=== PATIENT | female | born 1950 | race Native Hawaiian/Other Pacific Islander ===

== ENCOUNTER 2017-09-15 15:19 | Observation (INO) | payer MEDICARE ==
--- NOTE | 2017-09-15 16:16 | RAD ---
PROCEDURE: CHEST RADIOGRAPH, 1 VIEW HISTORY: SOB COMPARISON: Chest radiographs 03/22/2017. FINDINGS: LUNGS: No acute cardiopulmonary disease appreciated. PLEURA: No pneumothorax or pleural fluid seen. CARDIOVASCULAR: Cardiomegaly appears stable. No pulmonary vascular derangement identified. OSSEOUS STRUCTURES: No significant abnormalities. VISUALIZED UPPER ABDOMEN: Normal. OTHER FINDINGS: None. IMPRESSION: No interval acute cardiopulmonary disease appreciated.
[2017-09-15 16:25] LABS: BASO % 0.6 % (0.0-2.0); EOS # 0.2 K/uL (0.0-0.7); EOS % 3.1 % (0.0-4.0); HEMOGLOBIN 10.4 g/dL (11.0-16.0); LYMPH # 1.9 K/uL (1.0-4.3); LYMPH % 28.3 % (20.0-40.0); MEAN CELL VOLUME 82.3 fL (81.0-99.0); MEAN CORPUSCULAR HEMOGLOBIN 27.4 pg (27.0-31.0); MEAN CORPUSCULAR HGB CONC 33.3 g/dL (33.0-37.0); MEAN PLATELET VOLUME 9.4 fL (7.2-11.7); MONO # 0.9 K/uL (0.0-0.8); MONO % 12.8 % (0.0-10.0); NEUT # 3.8 K/uL (1.8-7.0); NEUT % 55.2 % (50.0-75.0); NRBC % 0.1 % (0.0-2.0); RBC 3.81 Mil/uL (3.80-5.20); RED CELL DISTRIBUTION WIDTH 12.6 % (11.5-14.5); WHITE BLOOD COUNT 6.8 K/uL (4.8-10.8)
[2017-09-15 16:33] LABS: PROTHROMBIN TIME 10.6 SECONDS (9.7-12.2)
[2017-09-15 16:37] LABS: SQUAMOUS EPITHIAL 1 /hpf (0-5); URINE BACTERIA RARE (<OCC); URINE BILIRUBIN NEGATIVE (NEGATIVE); URINE BLOOD NEGATIVE (NEGATIVE); URINE CLARITY Clear (Clear); URINE COLOR Yellow (YELLOW); URINE GLUCOSE (UA) NORMAL (Normal); URINE LEUKOCYTE ESTERASE NEGATIVE Leu/uL (Negative); URINE PROTEIN NEGATIVE (NEGATIVE); URINE UROBILINOGEN NORMAL mg/dL (0.2-1.0)
[2017-09-15 16:41] LABS: BARBITURATES, UR NEGATIVE (NEGATIVE); BENZODIAZEPINES, UR NEGATIVE (NEGATIVE); OPIATES, UR NEGATIVE (NEGATIVE); PHENCYCLIDINE, UR NEGATIVE (NEGATIVE)
[2017-09-15 16:42] LABS: ALBUMIN 3.4 g/dL (3.5-5.0); ALT/SGPT 58 U/L (9-52); AST/SGOT 35 U/L (14-36); BLOOD UREA NITROGEN 27 mg/dL (7-17); CALCIUM 10.2 mg/dl (8.6-10.4); GFR AFRICAN-AMERICAN > 60; GFR NON-AFRICAN AMERICAN > 60
[2017-09-15 16:44] LABS: ALB/GLOB RATIO 1.2 (1.0-2.1)
[2017-09-15] MEDS ORDERED: Enoxaparin 40 mg Syringe SC STA (16:52)
--- NOTE | 2017-09-15 16:52 | C.PDOC ---
Time Seen by Provider: 09/15/17 15:54 Chief Complaint (Nursing): Medical Clearance Past Medical History Vital Signs: Last Vital Signs Temp 98.6 F 09/15/17 15:22 Pulse 65 09/15/17 15:22 Resp 18 09/15/17 15:22 BP 174/85 H 09/15/17 15:22 Pulse Ox 96 09/15/17 15:22 - Medical History PMH: Asthma, HTN, Hyperlipidemia, Hyperthyroidism - Social History Hx Alcohol Use: No Hx Substance Use: No - Immunization History Hx Tetanus Toxoid Vaccination: No Hx Influenza Vaccination: No Hx Pneumococcal Vaccination: Yes Review Of Systems Constitutional: Positive for: Weight loss ED Course And Treatment O2 Sat by Pulse Oximetry: 96 Disposition - Disposition
[2017-09-15 16:57] LABS: B-TYPE NATRIURETIC PEPTIDE 6730 pg/mL (0-900)
--- NOTE | 2017-09-15 16:59 | C.PDOC ---
History Of Present Illness 66 y/o female, referred by , presents to the ER for a new onset on Afib. Patient states that she was diagnosed with hyperthyroidism without any treatment so far. Of note, patient reports that she recently had oral aphthous ulcers for which she was given viscous Lidocaine. Time Seen by Provider: 09/15/17 15:54 Chief Complaint (Nursing): Medical Clearance History Per: Patient History/Exam Limitations: no limitations Past Medical History Reviewed: Historical Data, Nursing Documentation, Vital Signs Vital Signs: Last Vital Signs Temp 98.6 F 09/15/17 15:22 Pulse 65 09/15/17 15:22 Resp 18 09/15/17 15:22 BP 174/85 H 09/15/17 15:22 Pulse Ox 96 09/15/17 17:31 - Medical History PMH: Asthma, HTN, Hyperlipidemia, Hyperthyroidism Surgical History: No Surg Hx Family History: States: No Known Family Hx - Social History Hx Alcohol Use: No Hx Substance Use: No - Immunization History Hx Tetanus Toxoid Vaccination: No Hx Influenza Vaccination: No Hx Pneumococcal Vaccination: Yes Review Of Systems Except As Marked, All Systems Reviewed And Found Negative. Constitutional: Positive for: Weight loss, Other (insomnia). Negative for: Fever, Chills Neurological: Negative for: Weakness, Numbness Physical Exam - Physical Exam Appears: Non-toxic, No Acute Distress, Other (thin Lebanese woman) Skin: Normal Color, Warm Head: Atraumatic, Normacephalic Eye(s): bilateral: Normal Inspection, PERRL, Other (no exophthalmos) Nose: Normal Oral Mucosa: Moist Neck: No Midline Cervical Tenderness, Supple Chest: Symmetrical Cardiovascular: Rhythm Irregular, Other (regular rate) Respiratory: Normal Breath Sounds, No Accessory Muscle Use Gastrointestinal/Abdominal: Normal Exam, Soft, No Tenderness Extremity: Normal ROM, No Tenderness, No Swelling Neurological/Psych: Oriented x3, Normal Speech, Normal Cognition, Normal Motor, Normal Sensation ED Course And Treatment - Laboratory Results Result Diagrams: 09/15/17 16:19 09/15/17 16:19 Lab Interpretation: Abnormal (TSH low, T4H, tox neg) ECG: Interpreted By Wy ECG Rhythm: Atrial Fibrillation ECG Interpretation: Abnormal Rate From EC O2 Sat by Pulse Oximetry: 96 (RA) Pulse Ox Interpretation: Normal - Radiology CXR: Interpreted by Me CXR Interpretation: Yes: No Acute Disease Progress Note: lovenox 50 mg SQ, lidocaine swish/swallow Reevaluation Time: 17:26 Reassessment Condition: Improved Medical Decision Making Medical Decision Making: new onset AF with HYPER thyroidism (high T4, low TSH from opt labs) ? low Dig level 0.5, unclear if pt on Dig Disposition Doctor Will See Patient In The: Hospital Counseled Patient/Family Regarding: Studies Performed, Diagnosis - Disposition Disposition: HOSPITALIZED Disposition Time: 17:30 Condition: GOOD - Clinical Impression Clinical Impression: Atrial fibrillation, Aphthous ulcer of mouth - Scribe Statement The provider has reviewed the documentation as recorded by the Jason Vizcarra Provider Attestation: All medical record entries made by the Jason were at my direction and personally dictated by me. I have reviewed the chart and agree that the record accurately reflects my personal performance of the history, physical exam, medical decision making, and the department course for this patient. I have also personally directed, reviewed, and agree with the discharge instructions and disposition.
[2017-09-15 17:06] LABS: FREE T4 6.49 ng/dL (0.78-2.19)
[2017-09-15] MEDS ORDERED: Enoxaparin 60 mg Syringe ONE ×2 (17:38→17:43)
--- NOTE | 2017-09-15 18:13 | CP.PCM.HP ---
History of Present Illness - History of Present Illness History of Present Illness: 66 years old Lady with PMH NIDDM2 Hypertension Cholesterol OA hips chronic periodic oral canker sore Asthma was doing good -patient was referred to cardio -for plan of hip surgery patient went for blood test- timing with cardio exam-blood showed suppressed TSH and Afib-new onset- patient was sent to ER for and admitted for further evaluation and mangement ROS no cough no fevr no chest painno SOB but reports something tightness on the left chest patient has gait abnormalitry and hip pain due to the arthtritis Surgery-none NKDA Home meds metformin losartan, inhalers atrovastatin and mouth wash non smoker non etoh Present on Admission - Present on Admission Any Indicators Present on Admission: No History of DVT/PE: No History of Uncontrolled Diabetes: No Urinary Catheter: No Decubitus Ulcer Present: No Review of Systems - Constitutional Constitutional: absent: Anorexia, Chills, Fatigue, Fever, Headache - EENT Eyes: absent: Other Visual Disturbances, Loss of Vision Ears: absent: Ear Pain, Abnormal Hearing, Disequilibrium Nose/Mouth/Throat: Mouth Lesions (chronic periodic canker sore ). absent: Epistaxis, Nasal Congestion, Nasal Discharge - Breasts Breasts: absent: Pain - Cardiovascular Cardiovascular: Palpitations (somewhat). absent: Chest Pain, Diaphoresis, Dyspnea, Pedal Edema, Syncope - Respiratory Respiratory: absent: Cough, Wheezing, Pain on Inspiration, Chest Congestion, Excessive Mucous Production - Gastrointestinal Gastrointestinal: absent: Abdominal Pain, Change in Bowel Habits, Diarrhea, Nausea, Vomiting - Genitourinary Genitourinary: absent: Difficulty Urinating, Flank Pain, Urinary Frequency, Bladder Distension - Reproductive: Female Reproductive:Female: Post Menopausal - Menstruation Menstruation: Post Menopausal - Musculoskeletal Musculoskeletal: Abnormal Gait (due to OA hips), Muscle Cramps (sometimes of thighs ), Radiating Pain into Limb (from hip paun). absent: Deformity - Integumentary Integumentary: absent: Bleeding Lesions, Rash, Skin Ulcer, Unusual Bruising - Neurological Neurological: absent: Abnormal Hearing, Abnormal Movements, Convulsions, Numbness, Sensory Deficit, Syncope, Other Visual Disturbances - Psychiatric Psychiatric: absent: Abnormal Sleep Pattern, Behavioral Changes, Confusion, Depression, Memory Loss, Visual Hallucinations - Endocrine Endocrine: Fatigue, Palpitations (somewhat ). absent: Excessive Sweating, Polydipsia, Polyphagia, Polyuria - Hematologic/Lymphatic Hematologic: absent: Easy Bleeding, Easy Bruising Past Patient History - Past Social History Smoking Status: Former Smoker - CARDIAC Hx Hypertension: Yes - PULMONARY Hx Asthma: Yes - ENDOCRINE/METABOLIC Hx Diabetes Mellitus Type 2: Yes Hx Hyperthyroidism: No - MUSCULOSKELETAL/RHEUMATOLOGICAL Hx Arthritis: Yes (hips) Other/Comment: hip problems, carpal tunnel syndrome - PSYCHIATRIC Hx Substance Use: No - SURGICAL HISTORY Other/Comment: right foot sx - ANESTHESIA Hx Anesthesia: Yes Hx Anesthesia Reactions: No Hx Malignant Hyperthermia: No Meds Allergies/Adverse Reactions: Allergies Allergy/AdvReac Type Severity Reaction Status Date / Time No Known Allergies Allergy Unverified 12/02/15 12:15 Physical Exam - Constitutional Appears: Well, No Acute Distress - Head Exam Head Exam: ATRAUMATIC, NORMOCEPHALIC - Eye Exam Eye Exam: absent: Nystagmus, Periorbital swelling - ENT Exam ENT Exam: Mucous Membranes Moist - Neck Exam Neck exam: Negative for: Tenderness, Thyromegaly (but feel nodules) - Respiratory Exam Respiratory Exam: Clear to Auscultation Bilateral, NORMAL BREATHING PATTERN - Cardiovascular Exam Cardiovascular Exam: Irregular Rhythm - GI/Abdominal Exam GI & Abdominal Exam: Normal Bowel Sounds, Soft. absent: Tenderness - Extremities Exam Extremities exam: Positive for: normal inspection, pedal pulses present. Negative for: joint swelling, pedal edema, tenderness - Back Exam Back exam: absent: rash noted, tenderness - Neurological Exam Neurological exam: Alert, Oriented x3 (gait is affected by hip pain) - Psychiatric Exam Psychiatric exam: Normal Affect, Normal Mood - Skin Skin Exam: Intact, Normal Color Results - Vital Signs Recent Vital Signs: Last Vital Signs Temp 98.6 F 09/15/17 15:22 Pulse 65 09/15/17 15:22 Resp 18 09/15/17 15:22 BP 174/85 H 09/15/17 15:22 Pulse Ox 96 09/15/17 17:39 - Labs Result Diagrams: 09/15/17 16:19 09/15/17 16:19 Labs: Laboratory Results - last 24 hr 09/15/17 09/15/17 09/15/17 16:19 16:19 16:19 WBC 6.8 RBC 3.81 Hgb 10.4 L Hct 31.3 L MCV 82.3 MCH 27.4 MCHC 33.3 RDW 12.6 Plt Count 228 MPV 9.4 Neut % (Auto) 55.2 Lymph % (Auto) 28.3 [place] % (Auto) 12.8 H Eos % (Auto) 3.1 Baso % (Auto) 0.6 Neut # 3.8 Lymph # 1.9 [place] # 0.9 H Eos # 0.2 Baso # 0.0 PT 10.6 INR 1.0 APTT 37 H Sodium 132 Potassium 3.6 Chloride 100 Carbon Dioxide 23 Anion Gap 12 BUN 27 H Creatinine 0.9 Est GFR ( Amer) > 60 Est GFR (Non-Af Amer) > 60 Random Glucose 140 H Calcium 10.2 Magnesium 1.6 Total Bilirubin 0.6 AST 35 ALT 58 H Alkaline Phosphatase 87 Troponin I < 0.0120 NT-Pro-B Natriuret Pep 6730 H Total Protein 6.3 Albumin 3.4 L Globulin 2.9 Albumin/Globulin Ratio 1.2 Free T4 TSH 3rd Generation < 0.02 L Urine Color Urine Clarity Urine pH Ur Specific [place] Urine Protein Urine Glucose (UA) Urine Ketones Urine Blood Urine Nitrate Urine Bilirubin Urine Urobilinogen Ur Leukocyte Esterase Urine WBC (Auto) Urine RBC (Auto) Ur Squamous Epith Cells Ur Transition Epith Cell Urine Bacteria Digoxin Urine Opiates Screen Urine Methadone Screen Ur Barbiturates Screen Ur Phencyclidine Scrn Ur Amphetamines Screen U Benzodiazepines Scrn U Oth Cocaine Metabols U Cannabinoids Screen 09/15/17 09/15/17 09/15/17 16:19 16:19 16:19 WBC RBC Hgb Hct MCV MCH MCHC RDW Plt Count MPV Neut % (Auto) Lymph % (Auto) [place] % (Auto) Eos % (Auto) Baso % (Auto) Neut # Lymph # [place] # Eos # Baso # PT INR APTT Sodium Potassium Chloride Carbon Dioxide Anion Gap BUN Creatinine Est GFR ( Amer) Est GFR (Non-Af Amer) Random Glucose Calcium Magnesium Total Bilirubin AST ALT Alkaline Phosphatase Troponin I NT-Pro-B Natriuret Pep Total Protein Albumin Globulin Albumin/Globulin Ratio Free T4 TSH 3rd Generation Urine Color Yellow Urine Clarity Clear Urine pH 5.0 Ur Specific [place] 1.006 Urine Protein Negative Urine Glucose (UA) Normal Urine Ketones Negative Urine Blood Negative Urine Nitrate Negative Urine Bilirubin Negative Urine Urobilinogen Normal Ur Leukocyte Esterase Negative Urine WBC (Auto) 1 Urine RBC (Auto) < 1 Ur Squamous Epith Cells 1 Ur Transition Epith Cell < 1 Urine Bacteria Rare Digoxin 0.5 L Urine Opiates Screen Negative Urine Methadone Screen Negative Ur Barbiturates Screen Negative Ur Phencyclidine Scrn Negative Ur Amphetamines Screen Negative U Benzodiazepines Scrn Negative U Oth Cocaine Metabols Negative U Cannabinoids Screen Negative 09/15/17 16:28 WBC RBC Hgb Hct MCV MCH MCHC RDW Plt Count MPV Neut % (Auto) Lymph % (Auto) [place] % (Auto) Eos % (Auto) Baso % (Auto) Neut # Lymph # [place] # Eos # Baso # PT INR APTT Sodium Potassium Chloride Carbon Dioxide Anion Gap BUN Creatinine Est GFR ( Amer) Est GFR (Non-Af Amer) Random Glucose Calcium Magnesium Total Bilirubin AST ALT Alkaline Phosphatase Troponin I NT-Pro-B Natriuret Pep Total Protein Albumin Globulin Albumin/Globulin Ratio Free T4 6.49 H TSH 3rd Generation < 0.02 L Urine Color Urine Clarity Urine pH Ur Specific [place] Urine Protein Urine Glucose (UA) Urine Ketones Urine Blood Urine Nitrate Urine Bilirubin Urine Urobilinogen Ur Leukocyte Esterase Urine WBC (Auto) Urine RBC (Auto) Ur Squamous Epith Cells Ur Transition Epith Cell Urine Bacteria Digoxin Urine Opiates Screen Urine Methadone Screen Ur Barbiturates Screen Ur Phencyclidine Scrn Ur Amphetamines Screen U Benzodiazepines Scrn U Oth Cocaine Metabols U Cannabinoids Screen Assessment & Plan - Assessment and Plan (Free Text) Assessment: 66 y.o. lady with multiple medical problem admitted for New Onset Afib- for further cardiac eval newly diagnosed Hyperthyroidism- further evaluation- betablocker, thyroid meds, further thyroid evaluation NIDDM- continue metformin ADA and heart healthy diet Cholesterol- continue statin Hypertension-continue medication and monitor Severe OA hips- was advised surgery- on hold -cardiac evaluation and managemnt and as above Anemia, mild- patient aware of condition and plan DVT prophylaxis GI prophylaxis
--- NOTE | 2017-09-15 20:32 | US ---
EXAM: US Soft Tissues Head and Neck, Thyroid EXAM DATE/TIME: 09/15/2017 7:15 PM CLINICAL HISTORY: 66 years old, female; Condition or disease; Other: Hyerthyroidism; Additional info: Hyperthyroid afib TECHNIQUE: Real-time ultrasound scan of the thyroid gland and soft tissues of the neck with image documentation. COMPARISON: There are no prior studies for comparison. FINDINGS: Left thyroid lobe: Left lobe is diffusely heterogeneous. Left lobe measures are 4.5 x 1.9 x 1.7 cm. There is diffuse hyperemia on color imaging. There is an 8.1 x 5.9 x 7.9 mm solid, hyperechoic medial left nodule at the level of the isthmus. Right thyroid lobe: Right lobe of the thyroid is diffusely heterogeneous. There are no discrete nodules. Right lobe measures approximately 5.1 x 2.3 x 1.8 cm. Lobe is diffusely hyperemic on color imaging. Isthmus: Isthmus measures 4.5 mm in width. Texture is mildly heterogeneous. The isthmus is hyperemic on color imaging. IMPRESSION: Heterogeneous gland with hyperemia on color imaging; 8 mm left lobe medial nodule Correlate with thyroid function tests No nodule follow-up is necessary.
[2017-09-15] MEDS: Enoxaparin 30 mg Syringe SC SCH (21:38)
--- NOTE | 2017-09-15 23:08 | CON ---
DATE: ENDOCRINOLOGY CONSULTATION LOCATION: Room 658. HISTORY OF PRESENT ILLNESS: This is a 66-year-old female with known history of type 2 diabetes, hypertension, presenting here with recent onset of rapid atrial fibrillation with associated suppressed TSH levels and is now being referred for thyroid evaluation and management. PAST MEDICAL HISTORY: As mentioned above. History of type 2 diabetes, currently on metformin at 500 mg b.i.d.; history of hypertension and dyslipidemia; history of chronic bronchial asthma. She also has severe osteoarthritis especially in the hip area and was actually scheduled for hip surgery. FAMILY HISTORY: Positive for diabetes and hypertension. No known thyroid endocrinopathy. SOCIAL HISTORY: The patient has a supportive family. No known substance use. REVIEW OF SYSTEMS: As mentioned above. Admits to generalized body weakness with easy fatigability and tiredness and suboptimal energy level. Also, admits to episodic bouts of dizziness and lightheadedness with persistent insomnia. No chest pains, but admits to persistent and worsening palpitations especially with exertion with progressive shortness of breath, worse in the last few days prior to admission. Her oral intake has been variable with nausea, dyspepsia and vague upper abdominal pains. Also, admits to episodic hyperdefecation. Moreover, admits to emotional lability with mood swings with occasional anxiety spells and marked insomnia as noted. PHYSICAL EXAMINATION: GENERAL: This is an aesthetic female, in no apparent distress. VITAL SIGNS: Blood pressure of 170/80; pulse of 110 beats per minute, irregular; temperature 98; respirations 20. Height is 5 feet. Weight is 110 pounds. HEENT: Head normocephalic. Eyes anicteric with pink conjunctivae. Funduscopy not possible at this time. Ears, nose, and throat otherwise normal. NECK: Supple. Thyroid gland shows diffuse and smooth thyromegaly, which is nontender and firm with no overt nodules noted. HEART: Hyperdynamic precordium. S1, S2 is rapid and irregular. LUNGS: Clear to auscultation. ABDOMEN: Flat, soft with positive bowel sounds. EXTREMITIES: No peripheral edema. Pulses are +2 bilaterally. LABORATORY DATA: Chemistry showed a BUN of 27, sodium 132, potassium 3.6, chloride of 100 and CO2 of 23, glucose 140 and creatinine 0.9. ProBNP is 6730. The troponin is less than 0.01. The free T4 is 6.49 with a TSH of less than 0.02. ASSESSMENT: This is a 66-year-old female with rapid atrial fibrillation, recent onset and most likely precipitated by overt hyperthyroidism both historically, clinically and by chemically related to possible autoimmune thyroiditis, i.e. Graves disease with not associated diffuse toxic goiter. PLAN OF MANAGEMENT: As the patient is scheduled for possible hip surgery, we will aggressively start her on high-dose thyroid pharmacotherapy with Tapazole given as 20 mg p.o. t.i.d. after meals to start tonight. We will also obtain thyroid antibodies to include a thyroid stimulating immunoglobulin and a thyroid peroxidase antibody and a thyroglobulin antibody to confirm and/or indicate the presence of underlying thyroid autoimmunity. We will obtain a total and free T4 and TSH tomorrow morning as ordered. We will obtain a thyroid ultrasound to confirm the thyroid lobe dimensions as noted. We will also discuss the therapeutic options whether to continue medical therapy or to offer radioactive iodine ablation only outpatient once she is more metabolically close to euthyroidism. We will follow and advise accordingly. Callie Myers MD
[2017-09-16 09:05] LABS: ALBUMIN 3.1 g/dL (3.5-5.0); ALT/SGPT 53 U/L (9-52); AST/SGOT 36 U/L (14-36); BLOOD UREA NITROGEN 31 mg/dL (7-17); CALCIUM 10.2 mg/dl (8.6-10.4); GFR AFRICAN-AMERICAN > 60; GFR NON-AFRICAN AMERICAN > 60
--- NOTE | 2017-09-16 09:09 | CP.PCM.PN ---
Subjective - Date & Time of Evaluation Date of Evaluation: 09/16/17 Time of Evaluation: 10:00 - Subjective Subjective: patient seeen still complaining of persistent left sided discomfort and palpitation with indomethacin- will DC indomethacine complaining of sleeping problem- has not had a good sleep for couple of days discussion of conditon and plan currently on tapazole thyroid US negative, labs pending Afib on beta saritha- complaing of mouth soreness Objective - Vital Signs/Intake and Output Vital Signs (last 24 hours): Temp Pulse Resp BP Pulse Ox 98.3 F 86 20 159/72 H 95 09/16/17 07:28 09/16/17 07:28 09/16/17 07:28 09/16/17 07:28 09/16/17 07:28 Intake and Output: 09/16/17 09/16/17 06:59 18:59 Intake Total 150 Balance 150 - Medications Medications: Current Medications Enoxaparin Sodium (Lovenox) 30 mg SC Q12 [facility] Last Admin: 09/15/17 21:38 Dose: 30 mg Indomethacin (Indocin) 50 mg PO DAILY PRN PRN Reason: Pain, Mild (1-3) Last Admin: 09/15/17 21:40 Dose: 50 mg Losartan Potassium (Cozaar) 50 mg PO DAILY [facility] Metformin HCl (Glucophage) 500 mg PO BID [place] Methimazole (Tapazole) 20 mg PO TID [place] Metoprolol Tartrate (Lopressor) 25 mg PO BID [place] Pantoprazole Sodium (Protonix Ec Tab) 40 mg PO DAILY [place] Rosuvastatin Calcium (Crestor) 10 mg PO HS [facility] Last Admin: 09/15/17 21:38 Dose: 10 mg - Labs Labs: 09/15/17 16:19 09/16/17 08:38 PT 10.6 SECONDS (9.7-12.2) 09/15/17 16:19 INR 1.0 09/15/17 16:19 APTT 37 SECONDS (21-34) H 09/15/17 16:19 - Constitutional Appears: Non-toxic, No Acute Distress - Head Exam Head Exam: ATRAUMATIC, NORMOCEPHALIC - Eye Exam Eye Exam: Normal appearance. absent: Nystagmus - ENT Exam ENT Exam: Mucous Membranes Moist - Neck Exam Neck Exam: Full ROM. absent: Tenderness (no thyromegaly) - Respiratory Exam Respiratory Exam: Clear to Ausculation Bilateral, NORMAL BREATHING PATTERN - Cardiovascular Exam Cardiovascular Exam: Irregular Rhythm - GI/Abdominal Exam GI & Abdominal Exam: Soft, Normal Bowel Sounds. absent: Tenderness - Extremities Exam Extremities Exam: Full ROM (gait abnormal due to pain). absent: Pedal Edema, Tenderness (hip no lesion) - Back Exam Back Exam: absent: rash noted, tenderness - Neurological Exam Neurological Exam: Alert, Awake, Oriented x3. absent: Normal Gait (due to hip pain) - Psychiatric Exam Psychiatric exam: Normal Affect, Normal Mood - Skin Skin Exam: Intact, Normal Color Assessment and Plan - Assessment and Plan (Free Text) Assessment: Patient with Afib-currently with controlled rate Chest pain- further cardiac evaluation Hyperthyroidism- Endocrine input appreciated- Thyroid US unremarkable, on tapazole, other lab work pending NIDDM- continue meds Hypertension not on goal will adjust medication Cholesterolnemia- on statin heart healthy ADA diet Severe Arthritis Hip with surgical plan as per ortho- on hold pending cardiac and thyroid stabilization continue GI and DVT prophylaxis
[2017-09-16 09:45] LABS: T3 5.7 nmol/L (1.49-2.60)
[2017-09-16 09:53] LABS: T4 > 24.9 ug/dL (5.5-11.0)
[2017-09-16] MEDS: Pantoprazole 40 mg EC Tab PO SCH (09:57)
[2017-09-16] MEDS ORDERED: Metoprolol Succinate 25 mg XL Tab PO SCH (10:00)
[2017-09-16] MEDS ORDERED: methIMAzole 5 MG TAB PO SCH ×2 (10:00)
[2017-09-16] MEDS: Enoxaparin 30 mg Syringe SC SCH (10:01)
--- NOTE | 2017-09-16 12:04 | CARD ---
APPROVED REPORT EKG Measurement Heart [id number] <Conclusion> Atrial fibrillation with slow ventricular response Nonspecific T wave abnormality Abnormal ECG
[2017-09-16] MEDS ORDERED: Acetaminophen-Codeine 300/30 mg Tab PO STA (12:22)
[2017-09-16] MEDS: Mag&Al/Simet/Diphen/Lido 237 ML KIT PO SCH ×2 (14:05→17:48)
--- NOTE | 2017-09-16 14:08 | PN ---
DATE: ENDOCRINOLOGY FOLLOWUP NOTE LOCATION: Room 658. SUBJECTIVE: This is a 66-year-old female presenting here with rapid atrial fibrillation and associated palpitations and generalized anxiety and has been evaluated to have recent onset of overt thyrotoxicosis both historically, clinically and biochemically and has been started on thyroid medications last night as given and tolerated. Her thyroid ultrasound which was done today confirmed the presence of a moderately enlarged goiter with the left lobe measuring 4.5 x 1.9 cm with a small solid nodule noted thereof. The right lobe measured 5.1 x 2.3 cm as noted. Although not mentioned in the report, this confirmed the presence of a multinodular gland since the normal lobes of the thyroid usually measuring below 2.5 cm. Her latest chemistries showed a repeat TSH of less than 0.02 and a total thyroxin or T4 of greater than 24.9 mcg/dL. Her free T4 was 6.27 and the serum cortisol of 4.8. Her A1c was 6.7% and the latest chemistry showed a BUN of 31, sodium 137, potassium 3.9, chloride 105, CO2 of 25, glucose 96 and creatinine 0.9. The thyroid antibodies are pending at this time. Her total T3 was actually 5.70. ASSESSMENT: This is a 66-year-old female with overt thyrotoxicosis with a concomitant diffuse toxic goiter with no overt compressive manifestations thereof. She most likely has so-called Graves disease, which is the most common autoimmune thyroiditis in this age category. PLAN OF MANAGEMENT: As the patient presented with rapid atrial fibrillation, it is imperative that we continue the high-dose medical therapy at this time as inpatient with Tapazole given as 20 mg t.i.d. after meals as started last night. After biochemical indices improved, then we can lower the Tapazole to at least 20 mg b.i.d. upon discharge as indicated. We will discuss the therapeutic options with either medical therapy and/or radioactive iodine ablation therapy as indicated. We will obtain serial chemistries and supplement accordingly as needed. We will follow. Callie Myers MD
[2017-09-16] MEDS ORDERED: (Novolog) Insulin Aspart, Recombinant 100 u/ml 10 ml vial SC SCH (16:30)
--- NOTE | 2017-09-16 20:21 | CP.PCM.CON ---
History of Present Illness - History of Present Illness History of Present Illness: 66 y/o female with Hx of HTN, DM 2 admitted for new onset A fib and Hyperthyroidism - Medical History PMH: Asthma, HTN, Hyperlipidemia, Hyperthyroidism Surgical History: No Surg Hx Family History: States: No Known Family Hx - Social History Hx Alcohol Use: No Hx Substance Use: No - Immunization History Hx Tetanus Toxoid Vaccination: No Hx Influenza Vaccination: No Hx Pneumococcal Vaccination: Yes Review Of Systems Except As Marked, All Systems Reviewed And Found Negative. Constitutional: Positive for: Weight loss, Other (insomnia). Negative for: Fever, Chills Neurological: Negative for: Weakness, Numbness Physical Exam - Physical Exam Appears: Non-toxic, No Acute Distress, Other (thin [place] Citizen woman) Skin: Normal Color, Warm Head: Atraumatic, Normacephalic Eye(s): bilateral: Normal Inspection, PERRL, Other (no exophthalmos) Nose: Normal Oral Mucosa: Moist Neck: No Midline Cervical Tenderness, Supple Chest: Symmetrical Cardiovascular: Rhythm Irregular, Other (regular rate) Respiratory: Normal Breath Sounds, No Accessory Muscle Use Gastrointestinal/Abdominal: Normal Exam, Soft, No Tenderness Extremity: Normal ROM, No Tenderness, No Swelling Neurological/Psych: Oriented x3, Normal Speech, Normal Cognition, Normal Motor, Normal Sensation Past Patient History - Past Medical History & Family History Past Medical History?: Yes - Past Social History Smoking Status: Never Smoked - CARDIAC Hx Hypertension: Yes - PULMONARY Hx Respiratory Disorders: Yes Hx Asthma: Yes - NEUROLOGICAL Hx Neurological Disorder: No - HEENT Hx HEENT Problems: No - RENAL Hx Chronic Kidney Disease: No - ENDOCRINE/METABOLIC Hx Diabetes Mellitus Type 2: Yes - HEMATOLOGICAL/ONCOLOGICAL Hx Blood Disorders: No - INTEGUMENTARY Hx Dermatological Problems: No - MUSCULOSKELETAL/RHEUMATOLOGICAL Hx Arthritis: Yes (SEVERE OA HIPS) - GASTROINTESTINAL Hx Gastrointestinal Disorders: No - GENITOURINARY/GYNECOLOGICAL Hx Genitourinary Disorders: No - PSYCHIATRIC Hx Psychophysiologic Disorder: No Hx Substance Use: No - SURGICAL HISTORY Hx Surgeries: No Other/Comment: right foot sx - ANESTHESIA Hx Anesthesia: Yes Hx Anesthesia Reactions: No Hx Malignant Hyperthermia: No Meds Allergies/Adverse Reactions: Allergies Allergy/AdvReac Type Severity Reaction Status Date / Time No Known Allergies Allergy Unverified 12/02/15 12:15 - Medications Medications: Current Medications Acetaminophen/Codeine Phosphate (Tylenol/Codeine 300 Mg/30 Mg) 1 ea PO Q8 PRN PRN Reason: Pain, moderate (4-7) Enoxaparin Sodium (Lovenox) 30 mg SC Q12 [facility] Last Admin: 09/16/17 10:01 Dose: 30 mg Glimepiride (Amaryl) 1 mg PO ACBD [facility] Insulin Aspart (Novolog) 0 unit SC ACHS [facility] PRN Reason: Protocol Losartan Potassium (Cozaar) 100 mg PO DAILY [facility] Methimazole (Tapazole) 20 mg PO TID [facility] Last Admin: 09/16/17 17:47 Dose: 20 mg Metoprolol Tartrate (Lopressor) 25 mg PO BID [facility] Last Admin: 09/16/17 17:46 Dose: 25 mg Pantoprazole Sodium (Protonix Ec Tab) 40 mg PO DAILY [facility] Last Admin: 09/16/17 09:57 Dose: 40 mg Rosuvastatin Calcium (Crestor) 10 mg PO HS [facility] Last Admin: 09/15/17 21:38 Dose: 10 mg Saliva Substitute (First Magic Mouthwash) 5 ml PO Q6 [facility] Last Admin: 09/16/17 17:48 Dose: 5 ml Zolpidem Tartrate (Ambien) 5 mg PO HS PRN PRN Reason: Insomnia Results - Vital Signs Recent Vital Signs: Last Vital Signs Temp 97.8 F 09/16/17 15:16 Pulse 76 09/16/17 15:16 Resp 18 09/16/17 15:16 BP 152/75 H 09/16/17 17:46 Pulse Ox 98 09/16/17 15:16 - Labs Result Diagrams: 09/15/17 16:19 09/16/17 08:38 Labs: Laboratory Results - last 24 hr 09/15/17 09/16/17 09/16/17 21:04 06:31 08:38 Sodium Potassium Chloride Carbon Dioxide Anion Gap BUN Creatinine Est GFR ( Amer) Est GFR (Non-Af Amer) POC Glucose (mg/dL) 166 H 97 Random Glucose Hemoglobin A1c Calcium TIBC Ferritin 424.0 Total Bilirubin AST ALT Alkaline Phosphatase Total Protein Albumin Globulin Albumin/Globulin Ratio Free T4 Thyroxine (T4) Total T3 5.70 H TSH 3rd Generation Cortisol AM Sample 09/16/17 09/16/17 09/16/17 08:38 08:38 08:38 Sodium 137 Potassium 3.9 Chloride 105 Carbon Dioxide 25 Anion Gap 11 BUN 31 H Creatinine 0.9 Est GFR ( Amer) > 60 Est GFR (Non-Af Amer) > 60 POC Glucose (mg/dL) Random Glucose 96 Hemoglobin A1c 6.7 H Calcium 10.2 TIBC 190 L Ferritin Total Bilirubin 0.5 AST 36 ALT 53 H Alkaline Phosphatase 88 Total Protein 6.2 L Albumin 3.1 L Globulin 3.0 Albumin/Globulin Ratio 1.0 Free T4 Thyroxine (T4) > 24.9 H Total T3 TSH 3rd Generation < 0.02 L Cortisol AM Sample 09/16/17 09/16/17 09/16/17 08:38 08:38 11:00 Sodium Potassium Chloride Carbon Dioxide Anion Gap BUN Creatinine Est GFR ( Amer) Est GFR (Non-Af Amer) POC Glucose (mg/dL) 135 H Random Glucose Hemoglobin A1c Calcium TIBC Ferritin Total Bilirubin AST ALT Alkaline Phosphatase Total Protein Albumin Globulin Albumin/Globulin Ratio Free T4 6.27 H Thyroxine (T4) Total T3 TSH 3rd Generation Cortisol AM Sample 4.8 09/16/17 16:15 Sodium Potassium Chloride Carbon Dioxide Anion Gap BUN Creatinine Est GFR ( Amer) Est GFR (Non-Af Amer) POC Glucose (mg/dL) 101 Random Glucose Hemoglobin A1c Calcium TIBC Ferritin Total Bilirubin AST ALT Alkaline Phosphatase Total Protein Albumin Globulin Albumin/Globulin Ratio Free T4 Thyroxine (T4) Total T3 TSH 3rd Generation Cortisol AM Sample Assessment & Plan - Assessment and Plan (Free Text) Assessment: 1. New Onset A Fib secondary to hyperthyroidism 2. Hyperthyroidism 3. HTN 4. DM 2 Anticoagulation and Rate control Awaiting ECHO
[2017-09-16] MEDS: Enoxaparin 40 mg Syringe SC SCH (21:32)
[2017-09-16] MEDS: (Novolog) Insulin Aspart, Recombinant 100 u/ml 10 ml vial SC SCH (22:00)
[2017-09-17] MEDS: Mag&Al/Simet/Diphen/Lido 237 ML KIT PO SCH ×4 (00:30→17:19)
[2017-09-17 01:02] VITALS: RESP 20
[2017-09-17] MEDS: (Novolog) Insulin Aspart, Recombinant 100 u/ml 10 ml vial SC SCH ×4 (08:01→21:49)
[2017-09-17 08:39] LABS: ALT/SGPT 46 U/L (9-52); AST/SGOT 31 U/L (14-36); BLOOD UREA NITROGEN 19 mg/dL (7-17); GFR AFRICAN-AMERICAN > 60; GFR NON-AFRICAN AMERICAN > 60
[2017-09-17] MEDS: Enoxaparin 40 mg Syringe SC SCH ×2 (09:33→21:49)
[2017-09-17] MEDS: Pantoprazole 40 mg EC Tab PO SCH (09:35)
[2017-09-17 09:40] LABS: T4 > 24.9 ug/dL (5.5-11.0)
--- NOTE | 2017-09-17 15:09 | CP.PCM.PN ---
Subjective - Date & Time of Evaluation Date of Evaluation: 09/17/17 Time of Evaluation: 02:30 - Subjective Subjective: patient seen- reports some palpitation lamar on exertion complains of mouth sore- currently using magic mouthwash hip pain going down the legs, cramps at times aware cannot go for hip surgery yet Objective - Vital Signs/Intake and Output Vital Signs (last 24 hours): Temp Pulse Resp BP Pulse Ox 98.7 F 76 20 140/67 98 09/17/17 07:25 09/17/17 12:03 09/17/17 07:25 09/17/17 09:33 09/17/17 07:25 - Medications Medications: Current Medications Acetaminophen/Codeine Phosphate (Tylenol/Codeine 300 Mg/30 Mg) 1 ea PO Q8 PRN PRN Reason: Pain, moderate (4-7) Enoxaparin Sodium (Lovenox) 40 mg SC Q12H [facility] Last Admin: 09/17/17 09:33 Dose: 40 mg Glimepiride (Amaryl) 1 mg PO ACBD [facility] Last Admin: 09/17/17 09:32 Dose: 1 mg Insulin Aspart (Novolog) 0 unit SC ACHS [facility] PRN Reason: Protocol Last Admin: 09/17/17 12:10 Dose: Not Given Losartan Potassium (Cozaar) 100 mg PO DAILY [facility] Last Admin: 09/17/17 09:32 Dose: 100 mg Methimazole (Tapazole) 20 mg PO TID [facility] Last Admin: 09/17/17 13:22 Dose: 20 mg Metoprolol Tartrate (Lopressor) 25 mg PO BID [facility] Last Admin: 09/17/17 09:33 Dose: 25 mg Pantoprazole Sodium (Protonix Ec Tab) 40 mg PO DAILY [facility] Last Admin: 09/17/17 09:35 Dose: 40 mg Rosuvastatin Calcium (Crestor) 10 mg PO HS [facility] Last Admin: 09/16/17 21:28 Dose: 10 mg Saliva Substitute (First Magic Mouthwash) 5 ml PO Q6 [facility] Last Admin: 09/17/17 13:22 Dose: 5 ml Zolpidem Tartrate (Ambien) 5 mg PO HS PRN PRN Reason: Insomnia - Labs Labs: 09/15/17 16:19 09/17/17 07:18 PT 10.6 SECONDS (9.7-12.2) 09/15/17 16:19 INR 1.0 09/15/17 16:19 APTT 37 SECONDS (21-34) H 09/15/17 16:19 - Constitutional Appears: Non-toxic - Head Exam Head Exam: ATRAUMATIC, NORMOCEPHALIC - Eye Exam Eye Exam: Normal appearance. absent: Nystagmus - ENT Exam ENT Exam: Mucous Membranes Moist - Neck Exam Neck Exam: Full ROM. absent: Tenderness - Respiratory Exam Respiratory Exam: Clear to Ausculation Bilateral, NORMAL BREATHING PATTERN - Cardiovascular Exam Cardiovascular Exam: absent: REGULAR RHYTHM - GI/Abdominal Exam GI & Abdominal Exam: Soft, Normal Bowel Sounds - Extremities Exam Extremities Exam: Full ROM. absent: Joint Swelling, Pedal Edema, Tenderness - Neurological Exam Neurological Exam: Alert, Awake, Oriented x3 (able walk but has some limping due to hip pain uses cane ) - Psychiatric Exam Psychiatric exam: Normal Affect, Normal Mood - Skin Skin Exam: Intact, Normal Color Assessment and Plan - Assessment and Plan (Free Text) Plan: PATIENT WITH NEW ONSET A FIB WITH NEWLY DIAGNOSED HYPERTHYROIDISM- ON MEDICATION CURRENT RATE CONTROLLED, STILL SOME EPISODIC PALPITATIONS- 2 D ECHO- PENDING , THYROISD US UNREMARKABLE- SCAN WAS ON HOLD NEEDED TO DC ANTITHYROID FOR FEW DAYS- WILL CONTROL THYROID TO PREVENT AFIB EXACERBATION AN DTHEN PLAN FOR SCAN CARDIO ON CASE NIDDM- CONTROLLED ON SAME MEDICATION HYPERTENSION- IMPROVING WITH DOSE ADJUSTMENT SEVERE OA HIPS- PAIN CONTROL, SURGERY ON HOLD DUE TO ABOVE ON PT REHAB
[2017-09-17] MEDS: Acetaminophen-Codeine 300/30 mg Tab PO PRN (17:18)
[2017-09-18] MEDS: Mag&Al/Simet/Diphen/Lido 237 ML KIT PO SCH ×4 (00:22→17:52)
--- NOTE | 2017-09-18 01:52 | PN ---
DATE: ENDOCRINOLOGY FOLLOWUP NOTE LOCATION: Room 658 SUBJECTIVE: This is a 66-year-old female with recent onset of rapid atrial fibrillation, most likely precipitated by overt thyrotoxicosis presenting here with marked hyperthyroidism both historically, clinically, and by chemically as noted thereof. She has been started right away on oral medical therapy with thioureas using Tapazole given as 20 mg p.o. t.i.d. after meals as ordered. She also has history of type 2 diabetes, previously on metformin given as 500 mg b.i.d., but because of the tremendous over 30 pound weight loss from the underlying hyperthyroidism, we will actually discontinue her metformin because the drug in itself will also cause further weight loss and anorexia as noted. Her latest chemistry showed a BUN of 19, sodium 139, potassium 3.7, chloride 106, CO2 of 23, glucose 85, creatinine 0.9. Her glucose levels have been on the low side of normal ranging from 79 to 81 mg/dL. Her latest thyroid studies still showed markedly elevated thyroid indices as noted with a total T4 of greater than 24.9 and a free T4 of 6.77 and a TSH of less than 0.02. Her serum cortisol level was 4.8 and her hemoglobin A1c is 6.7%. At this time, we will actually discontinue her metformin as ordered. We will also discontinue the Amaryl given as a low dose of 1 mg p.o. b.i.d. before meals as ordered. We will observe her glycemic fluctuation, when the hyperglycemic level supervene, then we will start her on very low dose of Januvia as indicated. We also continue the Tapazole now given at the maximum dose of 20 mg p.o. t.i.d. after meals as ordered. We will consider the possibility of radioactive iodine if she continues to have marked elevations of her thyroid studies accordingly. Callie Myers MD
[2017-09-18] MEDS: (Novolog) Insulin Aspart, Recombinant 100 u/ml 10 ml vial SC SCH ×4 (08:35→21:35)
[2017-09-18] MEDS: Enoxaparin 40 mg Syringe SC SCH ×2 (11:08→21:35)
[2017-09-18] MEDS: Pantoprazole 40 mg EC Tab PO SCH (11:08)
--- NOTE | 2017-09-18 17:34 | CP.PCM.PN ---
Subjective - Date & Time of Evaluation Date of Evaluation: 09/18/17 Time of Evaluation: 03:30 - Subjective Subjective: Patient seen, in bed no cough no fever, she report less chest pain her DM meds were adjusted her oral sore looks improving she uses the mouth wash her hip pain continues, but is aware that she cannot go for surgery yet until thyroid and heart is stabilized aware of plan of discharge in am Objective - Vital Signs/Intake and Output Vital Signs (last 24 hours): Temp Pulse Resp BP Pulse Ox 98.1 F 73 20 130/75 98 09/18/17 07:05 09/18/17 16:00 09/18/17 07:05 09/18/17 11:07 09/18/17 07:05 Intake and Output: 09/18/17 09/18/17 06:59 18:59 Intake Total 470 550 Balance 470 550 - Medications Medications: Current Medications Acetaminophen/Codeine Phosphate (Tylenol/Codeine 300 Mg/30 Mg) 1 ea PO Q8 PRN PRN Reason: Pain, moderate (4-7) Last Admin: 09/17/17 17:18 Dose: 1 ea Enoxaparin Sodium (Lovenox) 40 mg SC Q12H [facility] Last Admin: 09/18/17 11:08 Dose: 40 mg Insulin Aspart (Novolog) 0 unit SC ACHS [facility] PRN Reason: Protocol Last Admin: 09/18/17 17:14 Dose: Not Given Losartan Potassium (Cozaar) 100 mg PO DAILY [facility] Last Admin: 09/18/17 11:07 Dose: 100 mg Methimazole (Tapazole) 20 mg PO TID [facility] Last Admin: 09/18/17 13:41 Dose: 20 mg Metoprolol Tartrate (Lopressor) 25 mg PO BID [facility] Last Admin: 09/18/17 11:07 Dose: 25 mg Pantoprazole Sodium (Protonix Ec Tab) 40 mg PO DAILY [facility] Last Admin: 09/18/17 11:08 Dose: 40 mg Rosuvastatin Calcium (Crestor) 10 mg PO HS [facility] Last Admin: 09/17/17 21:49 Dose: 10 mg Saliva Substitute (First Magic Mouthwash) 5 ml PO Q6 [facility] Last Admin: 09/18/17 11:08 Dose: 5 ml Zolpidem Tartrate (Ambien) 5 mg PO HS PRN PRN Reason: Insomnia Last Admin: 09/17/17 21:49 Dose: 5 mg - Labs Labs: 09/15/17 16:19 09/17/17 07:18 PT 10.6 SECONDS (9.7-12.2) 09/15/17 16:19 INR 1.0 09/15/17 16:19 APTT 37 SECONDS (21-34) H 09/15/17 16:19 - Constitutional Appears: Non-toxic - Head Exam Head Exam: ATRAUMATIC, NORMOCEPHALIC - Eye Exam Eye Exam: Normal appearance - ENT Exam ENT Exam: Mucous Membranes Moist (can sore improving) - Neck Exam Neck Exam: Full ROM. absent: Tenderness - Respiratory Exam Respiratory Exam: Clear to Ausculation Bilateral, NORMAL BREATHING PATTERN - Cardiovascular Exam Cardiovascular Exam: Irregular Rhythm - GI/Abdominal Exam GI & Abdominal Exam: Soft, Normal Bowel Sounds. absent: Tenderness - Extremities Exam Extremities Exam: Full ROM, Normal Inspection. absent: Joint Swelling, Pedal Edema - Neurological Exam Neurological Exam: Alert, Awake, Oriented x3 (ambulates but gait affected due to hip pain) - Psychiatric Exam Psychiatric exam: Normal Affect, Normal Mood - Skin Skin Exam: Intact, Normal Color Assessment and Plan - Assessment and Plan (Free Text) Assessment: Patient with marlene onset Afib- with nina diagnosed hyperthyroidism heart rate controlled on anti thyroid medication DM medications adjusted as per endocrine notes Hypertension stable an dcontrolled Severe OA hips- supportive Canker sore supportive improving plan for discharge
[2017-09-19] MEDS: Mag&Al/Simet/Diphen/Lido 237 ML KIT PO SCH ×3 (00:38→13:25)
[2017-09-19 02:07] VITALS: O2SAT 98
[2017-09-19] MEDS: (Novolog) Insulin Aspart, Recombinant 100 u/ml 10 ml vial SC SCH ×2 (07:49→13:25)
[2017-09-19 08:26] VITALS: TEMP 98
[2017-09-19] MEDS: Enoxaparin 40 mg Syringe SC SCH (09:52)
[2017-09-19] MEDS: Acetaminophen-Codeine 300/30 mg Tab PO PRN (09:52)
[2017-09-19] MEDS: Pantoprazole 40 mg EC Tab PO SCH (09:54)
[2017-09-19 09:56] VITALS: BP 129/78
--- NOTE | 2017-09-19 12:52 | CP.PCM.PN ---
Subjective - Date & Time of Evaluation Date of Evaluation: 09/18/17 Time of Evaluation: 13:10 - Subjective Subjective: Patient seen and evaluated C/O some hip pain No chest pain or dyspnea Review Of Systems Except As Marked, All Systems Reviewed And Found Negative. Constitutional: Positive for: Weight loss, Other (insomnia). Negative for: Fever, Chills Neurological: Negative for: Weakness, Numbness Physical Exam - Physical Exam Appears: Non-toxic, No Acute Distress, Other (thin [place] woman) Skin: Normal Color, Warm Head: Atraumatic, Normacephalic Eye(s): bilateral: Normal Inspection, PERRL, Other (no exophthalmos) Nose: Normal Oral Mucosa: Moist Neck: No Midline Cervical Tenderness, Supple Chest: Symmetrical Cardiovascular: Rhythm Irregular, Other (regular rate) Respiratory: Normal Breath Sounds, No Accessory Muscle Use Gastrointestinal/Abdominal: Normal Exam, Soft, No Tenderness Extremity: Normal ROM, No Tenderness, No Swelling Neurological/Psych: Oriented x3, Normal Speech, Normal Cognition, Normal Motor, Normal Sensation Objective - Vital Signs/Intake and Output Vital Signs (last 24 hours): Temp Pulse Resp BP Pulse Ox 98.0 F 105 H 20 129/78 98 09/19/17 08:15 09/19/17 08:15 09/19/17 08:15 09/19/17 09:55 09/19/17 08:15 - Medications Medications: Current Medications Acetaminophen/Codeine Phosphate (Tylenol/Codeine 300 Mg/30 Mg) 1 ea PO Q8 PRN PRN Reason: Pain, moderate (4-7) Last Admin: 09/19/17 09:52 Dose: 1 ea Apixaban (Eliquis) 2.5 mg PO BID [facility] Insulin Aspart (Novolog) 0 unit SC ACHS [facility] PRN Reason: Protocol Last Admin: 09/19/17 07:49 Dose: Not Given Losartan Potassium (Cozaar) 100 mg PO DAILY [facility] Last Admin: 09/19/17 09:54 Dose: 100 mg Methimazole (Tapazole) 20 mg PO TID [facility] Last Admin: 09/19/17 09:54 Dose: 20 mg Metoprolol Tartrate (Lopressor) 25 mg PO BID [facility] Last Admin: 09/19/17 09:55 Dose: 25 mg Pantoprazole Sodium (Protonix Ec Tab) 40 mg PO DAILY [facility] Last Admin: 09/19/17 09:54 Dose: 40 mg Rosuvastatin Calcium (Crestor) 10 mg PO HS [facility] Last Admin: 09/18/17 21:34 Dose: 10 mg Saliva Substitute (First Magic Mouthwash) 5 ml PO Q6 [facility] Last Admin: 09/19/17 05:49 Dose: Not Given Zolpidem Tartrate (Ambien) 5 mg PO HS PRN PRN Reason: Insomnia Last Admin: 09/17/17 21:49 Dose: 5 mg - Labs Labs: 09/15/17 16:19 09/17/17 07:18 PT 10.6 SECONDS (9.7-12.2) 09/15/17 16:19 INR 1.0 09/15/17 16:19 APTT 37 SECONDS (21-34) H 09/15/17 16:19 Assessment and Plan - Assessment and Plan (Free Text) Assessment: Assessment & Plan - Assessment and Plan (Free Text) Assessment: 1. New Onset A Fib secondary to hyperthyroidism 2. Hyperthyroidism 3. HTN 4. DM 2 ECHO: Normal EF [id number] score: 4 Needs anticoagulation Will start her on Eliquis 2.5 mg po bid (Body weight 45kg) Expaind the risks of bleeding and the benefits of stroke prevention Continue current dose of B blockers and ARBs
[2017-09-19 12:59] LABS: ALBUMIN 3.1 g/dL (3.5-5.0); ALT/SGPT 60 U/L (9-52); AST/SGOT 61 U/L (14-36); BLOOD UREA NITROGEN 16 mg/dL (7-17); CALCIUM 9.6 mg/dl (8.6-10.4); GFR AFRICAN-AMERICAN > 60; GFR NON-AFRICAN AMERICAN > 60
[2017-09-19 13:27] LABS: T4 > 24.9 ug/dL (5.5-11.0)
--- NOTE | 2017-09-19 15:19 | CP.PCM.PN ---
Subjective - Date & Time of Evaluation Date of Evaluation: 09/19/17 Time of Evaluation: 03:00 - Subjective Subjective: Patient seen- nocomplaints other than hip pain , she took tylenol with mild relief aware of thyroid problem and Afib discussion of medication spoke with Endo and Cardio regarding plan of home today patient aware of plan Objective - Vital Signs/Intake and Output Vital Signs (last 24 hours): Temp Pulse Resp BP Pulse Ox 98.0 F 105 H 20 129/78 98 09/19/17 08:15 09/19/17 08:15 09/19/17 08:15 09/19/17 09:55 09/19/17 08:15 Intake and Output: 09/19/17 09/19/17 06:59 18:59 Intake Total 350 Balance 350 - Medications Medications: Current Medications Acetaminophen/Codeine Phosphate (Tylenol/Codeine 300 Mg/30 Mg) 1 ea PO Q8 PRN PRN Reason: Pain, moderate (4-7) Last Admin: 09/19/17 09:52 Dose: 1 ea Apixaban (Eliquis) 2.5 mg PO BID [facility] Insulin Aspart (Novolog) 0 unit SC ACHS [facility] PRN Reason: Protocol Last Admin: 09/19/17 13:25 Dose: Not Given Losartan Potassium (Cozaar) 100 mg PO DAILY [facility] Last Admin: 09/19/17 09:54 Dose: 100 mg Methimazole (Tapazole) 20 mg PO TID [facility] Last Admin: 09/19/17 14:17 Dose: 20 mg Metoprolol Tartrate (Lopressor) 25 mg PO BID [facility] Last Admin: 09/19/17 09:55 Dose: 25 mg Pantoprazole Sodium (Protonix Ec Tab) 40 mg PO DAILY [facility] Last Admin: 09/19/17 09:54 Dose: 40 mg Rosuvastatin Calcium (Crestor) 10 mg PO HS [facility] Last Admin: 09/18/17 21:34 Dose: 10 mg Saliva Substitute (First Magic Mouthwash) 5 ml PO Q6 [facility] Last Admin: 09/19/17 13:25 Dose: Not Given Zolpidem Tartrate (Ambien) 5 mg PO HS PRN PRN Reason: Insomnia Last Admin: 09/17/17 21:49 Dose: 5 mg - Labs Labs: 09/15/17 16:19 09/19/17 12:06 PT 10.6 SECONDS (9.7-12.2) 09/15/17 16:19 INR 1.0 09/15/17 16:19 APTT 37 SECONDS (21-34) H 09/15/17 16:19 - Constitutional Appears: Well - Head Exam Head Exam: ATRAUMATIC, NORMOCEPHALIC - ENT Exam ENT Exam: Mucous Membranes Moist - Neck Exam Neck Exam: Full ROM - Respiratory Exam Respiratory Exam: Clear to Ausculation Bilateral, NORMAL BREATHING PATTERN - Cardiovascular Exam Cardiovascular Exam: REGULAR RHYTHM - GI/Abdominal Exam GI & Abdominal Exam: Soft, Normal Bowel Sounds - Extremities Exam Extremities Exam: Full ROM. absent: Joint Swelling, Pedal Edema - Back Exam Back Exam: NORMAL INSPECTION. absent: rash noted - Neurological Exam Neurological Exam: Alert - Psychiatric Exam Psychiatric exam: Normal Affect, Normal Mood - Skin Skin Exam: Intact, Normal Color Assessment and Plan - Assessment and Plan (Free Text) Assessment: Patient with Afib and Hyperthyroidism Medication adjusted and continue Plan for home withy inderal 80 tapazole and Eliquis patient to be seen by Cardio this wednesday for follow up and my clinin next week Lab to be followed up DM- aware of medication adjustment Hyperetension- to continue home today discussion with staff
--- NOTE | 2017-09-19 15:22 | CP.PCM.DIS ---
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) Status: Acute Hospital Course - Lab Results Lab Results: Most Recent Lab Values WBC 6.8 K/uL (4.8-10.8) 09/15/17 16:19 RBC 3.81 Mil/uL (3.80-5.20) 09/15/17 16:19 Hgb 10.4 g/dL (11.0-16.0) L 09/15/17 16:19 Hct 31.3 % (34.0-47.0) L 09/15/17 16:19 MCV 82.3 fL (81.0-99.0) 09/15/17 16:19 MCH 27.4 pg (27.0-31.0) 09/15/17 16:19 MCHC 33.3 g/dL (33.0-37.0) 09/15/17 16:19 RDW 12.6 % (11.5-14.5) 09/15/17 16:19 Plt Count 228 K/uL (130-400) 09/15/17 16:19 MPV 9.4 fL (7.2-11.7) 09/15/17 16:19 Neut % (Auto) 55.2 % (50.0-75.0) 09/15/17 16:19 Lymph % (Auto) 28.3 % (20.0-40.0) 09/15/17 16:19 [place] % (Auto) 12.8 % (0.0-10.0) H 09/15/17 16:19 Eos % (Auto) 3.1 % (0.0-4.0) 09/15/17 16:19 Baso % (Auto) 0.6 % (0.0-2.0) 09/15/17 16:19 Neut # 3.8 K/uL (1.8-7.0) 09/15/17 16:19 Lymph # 1.9 K/uL (1.0-4.3) 09/15/17 16:19 [place] # 0.9 K/uL (0.0-0.8) H 09/15/17 16:19 Eos # 0.2 K/uL (0.0-0.7) 09/15/17 16:19 Baso # 0.0 K/uL (0.0-0.2) 09/15/17 16:19 PT 10.6 SECONDS (9.7-12.2) 09/15/17 16:19 INR 1.0 09/15/17 16:19 APTT 37 SECONDS (21-34) H 09/15/17 16:19 Sodium 137 mmol/L (132-148) 09/19/17 12:06 Potassium 3.9 mmol/L (3.6-5.2) 09/19/17 12:06 Chloride 102 mmol/L (98-107) 09/19/17 12:06 Carbon Dioxide 27 mmol/L (22-30) 09/19/17 12:06 Anion Gap 12 (10-20) 09/19/17 12:06 BUN 16 mg/dL (7-17) 09/19/17 12:06 Creatinine 0.8 mg/dL (0.7-1.2) 09/19/17 12:06 Est GFR ( Amer) > 60 09/19/17 12:06 Est GFR (Non-Af Amer) > 60 09/19/17 12:06 POC Glucose (mg/dL) 135 mg/dL (65-110) H 09/19/17 11:13 Random Glucose 198 mg/dL (65-105) H 09/19/17 12:06 Hemoglobin A1c 6.7 % (4.2-6.5) H 09/16/17 08:38 Calcium 9.6 mg/dl (8.6-10.4) 09/19/17 12:06 Magnesium 1.6 mg/dL (1.6-2.3) 09/15/17 16:19 TIBC 190 ug/dL (250-450) L 09/16/17 08:38 Ferritin 424.0 ng/mL 09/16/17 08:38 Total Bilirubin 0.4 mg/dL (0.2-1.3) 09/19/17 12:06 AST 61 U/L (14-36) H D 09/19/17 12:06 ALT 60 U/L (9-52) H D 09/19/17 12:06 Alkaline Phosphatase 88 U/L (38-126) 09/19/17 12:06 Troponin I < 0.0120 ng/mL (0.00-0.120) 09/15/17 16:19 NT-Pro-B Natriuret Pep 6730 pg/mL (0-900) H 09/15/17 16:19 Total Protein 6.0 g/dL (6.3-8.3) L 09/19/17 12:06 Albumin 3.1 g/dL (3.5-5.0) L 09/19/17 12:06 Globulin 3.0 gm/dL (2.2-3.9) 09/19/17 12:06 Albumin/Globulin Ratio 1.0 (1.0-2.1) 09/19/17 12:06 Free T4 4.91 ng/dL (0.78-2.19) H 09/19/17 12:06 Thyroxine (T4) > 24.9 ug/dL (5.5-11.0) H 09/19/17 12:06 Total T3 5.70 nmol/L (1.49-2.60) H 09/16/17 08:38 TSH 3rd Generation < 0.02 mIU/L (0.46-4.68) L 09/19/17 12:06 Cortisol AM Sample 4.8 ug/dL (4.46-22.7) 09/16/17 08:38 Urine Color Yellow (YELLOW) 09/15/17 16: Urine Clarity Clear (Clear) 09/15/17 16: Urine pH 5.0 (5.0-8.0) 09/15/17 16:19 Ur Specific [place] 1.006 (1.003-1.030) 09/15/17 16: Urine Protein Negative mg/dL (NEGATIVE) 09/15/17 16: Urine Glucose (UA) Normal mg/dL (Normal) 09/15/17 16: Urine Ketones Negative mg/dL (NEGATIVE) 09/15/17 16: Urine Blood Negative (NEGATIVE) 09/15/17 16:19 Urine Nitrate Negative (NEGATIVE) 09/15/17 16: Urine Bilirubin Negative (NEGATIVE) 09/15/17 16: Urine Urobilinogen Normal mg/dL (0.2-1.0) 09/15/17 16:19 Ur Leukocyte Esterase Negative Joseph/uL (Negative) 09/15/17 16:19 Urine WBC (Auto) 1 /hpf (0-5) 09/15/17 16:19 Urine RBC (Auto) < 1 /hpf (0-3) 09/15/17 16:19 Ur Squamous Epith Cells 1 /hpf (0-5) 09/15/17 16:19 Ur Transition Epith Cell < 1 /hpf (0-3) 09/15/17 16:19 Urine Bacteria Rare (<OCC) 09/15/17 16:19 Digoxin 0.5 ng/mL (0.8-2.0) L 09/15/17 16:19 Urine Opiates Screen Negative (NEGATIVE) 09/15/17 16:19 Urine Methadone Screen Negative (NEGATIVE) 09/15/17 16:19 Ur Barbiturates Screen Negative (NEGATIVE) 09/15/17 16:19 Ur Phencyclidine Scrn Negative (NEGATIVE) 09/15/17 16:19 Ur Amphetamines Screen Negative (NEGATIVE) 09/15/17 16:19 U Benzodiazepines Scrn Negative (NEGATIVE) 09/15/17 16:19 U Oth Cocaine Metabols Negative (NEGATIVE) 09/15/17 16:19 U Cannabinoids Screen Negative (NEGATIVE) 09/15/17 16:19 Thyroperoxidase Ab 648 IU/mL (<9) H 09/16/17 08:38 Thyroglobulin Antibody 39 IU/mL (< OR = 1) H 09/16/17 08:38 - Hospital Course Hospital Course: admitted due to new onset A FIB- found to have hyperthyroidism and was placed on antithyroid meds- thyroid US nonodules, scan to be done when stabilized since ,it s required to stop anti thyroid for 3-days. A fib coontrolled and on Eliquis and Inderal DM meds adjusted as per endocrine patient stabilizeda nd sent home for outpatient follow ups Discharge Exam - Head Exam Head Exam: ATRAUMATIC, NORMOCEPHALIC - Eye Exam Eye Exam: Normal appearance - ENT Exam ENT Exam: Mucous Membranes Moist - Respiratory Exam Respiratory Exam: Clear to PA & Lateral, NORMAL BREATHING PATTERN - GI/Abdominal Exam GI & Abdominal Exam: Normal Bowel Sounds, Soft. absent: Tenderness - Neurological Exam Neurological exam: Alert, Normal Gait (other than positional walking due to hip pain), Oriented x3 - Psychiatric Exam Psychiatric exam: Normal Affect, Normal Mood - Skin Skin Exam: Intact, Normal Color Discharge Plan - Follow Up Plan Condition: GOOD Disposition: HOME/ ROUTINE
[2017-09-19 15:29] VITALS: PULSE 74
--- NOTE | 2017-09-19 20:55 | PN ---
DATE: ENDOCRINOLOGY FOLLOWUP NOTE LOCATION: Room 658 SUBJECTIVE: This is a 66-year-old female with recent admission for marked hyperthyroidism related to underlying Graves' disease with a concomitant diffuse toxic goiter and also supervening rapid atrial fibrillation and has since then improved clinically and hemodynamically and also metabolically as noted thereof. A repeat thyroid study showed a T4 of over 24.9 mcg/dL with a lower free T4 of 4.91 and a persistent TSH suppression of less than 0.02. It takes 6 months to a year for normalization of the TSH levels as noted. We would aim for thyroid studies, especially the total T4 of 10 mU/mL and lower for the patient to be cleared for hip surgery accordingly. So, we will obtain serial chemistries and supplement accordingly as needed. We will also obtain serial thyroid studies and adjust those regimen accordingly. For now, we would highly recommend the Tapazole to be given as 20 mg p.o. b.i.d. after meals as ordered; we will continue the low-dose once daily; beta-saritha given as Inderal LA at 80 mg once daily everyday as ordered. We will titrate incrementally as indicated to optimize metabolic control. She will follow with her medical doctor as outpatient for thyroid management and serial followup and testing. We will follow with you. Callie Myers MD
--- NOTE | 2017-09-19 21:40 | PN ---
DATE: ENDOCRINOLOGY FOLLOWUP NOTE LOCATION: Room 658. SUBJECTIVE: This is a 66-year-old female with recent overt thyrotoxicosis who is presenting here with rapid atrial fibrillation and associated marked hyperthyroidism both historically, clinically and by chemically, most likely related to underlying Graves' disease and is now being followed closely for metabolic management. Her latest thyroid studies showed a T4 still over 24.9 and a free T4 of 6.77 and a TSH of less than 0.02. Her glucose values have improved after we stopped and discontinued all the oral hypoglycemic drug therapy as noted. Her glucose values of late have ranged from 91 to 126 mg/dL. Her latest chemistry showed a BUN of 19, sodium 139, potassium 3.7, chloride 106, CO2 of 23, glucose 85 and creatinine 0.9. So at this time we will continue the high-dose medical therapy using Tapazole 20 mg p.o. t.i.d. after meals as ordered. We will also continue the beta blockers as given. We will obtain serial thyroid studies and adjust the dose regimen accordingly. We will also discuss with the patient the therapeutic options of whether to stay on medical therapy and/or opt for a radioactive iodine ablation to be don on the outpatient as indicated. We will follow. Callie Myers MD
--- NOTE | 2017-09-19 22:19 | PN ---
DATE: ENDOCRINOLOGY FOLLOWUP NOTE LOCATION: Room 658. SUBJECTIVE: This is a 66-year-old female with a recent admission for rapid atrial fibrillation and marked hyperthyroidism, currently tolerating her medical therapy given at maximal dose as noted. She has improved clinically and emotionally and physically as noted. Her dizziness and lightheadedness and palpitations with precordial chest pain have all subsided at this time. The latest chemistry shows a BUN of 16, sodium 137, potassium 3.9, chloride 102, CO2 of 27, glucose 198, and creatinine 0.8. Repeat thyroid studies showed a T4 of greater than 24.9 with a free T4 of 4.91 and a TSH of less than 0.02. So, at this time, we will recommend for eventual discharge today, switching her over to a long-acting beta-saritha for compliance and convenience of taking, and we would suggest Inderal LA at 80 mg once daily as given. We will also change her Tapazole to 20 mg p.o. b.i.d. after meals to start today and also upon discharge as noted. As discussed with the patient and the primary physician, she also has a moderately enlarged, diffuse toxic goiter which is expected with this kind of aforementioned condition. We will follow with you. Callie Myers MD
--- NOTE | 2017-09-20 15:38 | CARD ---
APPROVED REPORT EXAM: Two-dimensional and M-mode echocardiogram with Doppler and color Doppler. Other Information Quality : [employer] : INDICATION Atrial Fibrillation Palpitations 2D DIMENSIONS IVSd0.9 (0.7-1.1cm)LVDd4.2 (3.9-5.9cm) PWd0.7 (0.7-1.1cm)LVDs2.3 (2.5-4.0cm) FS (%) 44.3 %LVEF (%)75.9 (>50%) M-Mode DIMENSIONS RVDd1.59 (2.1-3.2cm)Left Atrium (MM)2.97 (2.5-4.0cm) IVSd0.88 (0.7-1.1cm)Aortic Root3.44 (2.2-3.7cm) LVDd4.69 (4.0-5.6cm)Aortic Cusp Exc.2.18 (1.5-2.0cm) PWd0.94 (0.7-1.1cm)FS (%) 41 % LVDs2.77 (2.0-3.8cm)LVEF (%)72 (>50%) Mitral Valve MV E [id number]/sE/A ratio0.0 TDI E/Lateral E'0.0E/Medial E'0.0 Tricuspid Valve TR Peak [id number]/sTR Peak [id number] LEFT VENTRICLE The left ventricle is normal size. There is normal left ventricular wall thickness. The Ejection Fraction is 65-70%. There is normal LV segmental wall motion. probably normal diastolic function. RIGHT VENTRICLE The right ventricle is normal size. The right ventricular systolic function is normal. ATRIA The left atrium size is normal. The right atrium size is normal. The interatrial septum is intact with no evidence for an atrial septal defect. AORTIC VALVE The aortic valve is normal in structure. No aortic regurgitation is present. MITRAL VALVE The mitral valve is normal in structure. Mitral regurgitation is trace. TRICUSPID VALVE The tricuspid valve is normal in structure. There is mild tricuspid regurgitation. Right ventricular systolic pressure is estimated at 53 mmHg. There is moderate pulmonary hypertension. PULMONIC VALVE The pulmonary valve is normal in structure. GRE[employer] VESSELS ascending aorta is mildly dilated,4.1 cm. The IVC is normal in size and collapses >50% with inspiration. PERICARDIAL EFFUSION There is no pericardial effusion. <Conclusion> The left ventricle is normal size. There is normal left ventricular wall thickness. The Ejection Fraction is 65-70%. probably normal lv diastolic function. There is mild tricuspid regurgitation. Right ventricular systolic pressure is estimated at 53 mmHg. There is moderate pulmonary hypertension. ascending aorta is mildly dilated,4.1 cm. There is no pericardial effusion.
[2017-09-20 19:17] LABS: TSI 500 % baseline (<140)
== END 2017-09-19 16:17 | disposition home or self-care (01) ==
LOC: C.ER 15:19 → INTOOBSV 17:07 → C.9E 17:07 → C.6T 17:59
PROVIDERS: ADMIT Internal Medicine; ATTEND Internal Medicine
DX: E05.00 Thyrotoxicosis with diffuse goiter without thyrotoxic crisis or storm (principal); I48.91 Unspecified atrial fibrillation; E11.9 Type 2 diabetes mellitus without complications; D64.9 Anemia, unspecified; E78.5 Hyperlipidemia, unspecified; E06.3 Autoimmune thyroiditis; K12.0 Recurrent oral aphthae; F41.1 Generalized anxiety disorder; I10 Essential (primary) hypertension; J45.909 Unspecified asthma, uncomplicated; M16.0 Bilateral primary osteoarthritis of hip; Z79.84 Long term (current) use of oral hypoglycemic drugs; Z87.891 Personal history of nicotine dependence
CPT/HCPCS: 36415; 71045; 76536; 80053; 80162; 81001; 82533; 82728; 82948; 83036; 83550; 83735; 83880; 84439; 84443; 84445; 84480; 84484; 85025; 85610; 85730; 86376; 86800; 93005; 93306; 96372; 97116; 97162; 99284; G0378; G0480; G8978; G8979; J1650